=== PATIENT | female | born 1970 | race Caucasian/White ===

== ENCOUNTER 2023-02-16 17:24 | Inpatient (IN) | payer OTHER ==
[~2023-02-16] VITALS: Ht 167.6 cm; Wt 113.0 kg
[2023-02-16] MEDS ORDERED: ACET-3385 PO (17:34)
[2023-02-16] MEDS ORDERED: GABA-1181 PO (17:34)
[2023-02-16] MEDS ORDERED: METO25 PO (17:34)
[2023-02-16] MEDS ORDERED: LISI-893 PO (17:34)
[2023-02-16] MEDS ORDERED: AMLO-258 PO (17:34)
[2023-02-16] MEDS ORDERED: CYCL-448 PO (17:34)
[2023-02-16] MEDS ORDERED: HYDR25TA2 PO (17:34)
[2023-02-16] MEDS ORDERED: OMEP10 PO (17:34)
[2023-02-16] MEDS ORDERED: SODIUM CHLORIDE 0.9% 1,000 ML IV ONE ×2 (18:30→20:15)
[2023-02-16] MEDS ORDERED: ONDANSETRON HCL 4 MG/2 ML VIAL IVP ONE (18:30)
[2023-02-16] MEDS ORDERED: PANTOPRAZOLE SODIUM 40 MG/VIAL IVP ONE (18:30)
[2023-02-16] MEDS ORDERED: MORPHINE SULFATE 2 MG/ML SYRINGE IVP ONE (18:30)
[2023-02-16] MEDS ORDERED: PANTOPRAZOLE SODIUM 80 MG in SODIUM CHLORIDE 0.9% 100 ML IV SCH (19:00)
[2023-02-16 19:16] LABS: BASOPHILS % (AUTO) 0.1 % (0.0-2.0); EOSINOPHILS % (AUTO) 0 % (1.0-6.0); HEMATOCRIT 37.3 % (36-46); HEMOGLOBIN 12.4 g/dL (12.0-16.0); LYMPHOCYTES # (AUTO) 1.1 K/uL (1.0-4.8); LYMPHOCYTES % (AUTO) 6.3 % (22.0-44.0); MEAN CORPUSCULAR HEMOGLOBIN 28.3 pg (26.0-34.0); MEAN CORPUSCULAR HGB CONC 33.3 G/dL (31.0-37.0); MEAN CORPUSCULAR VOLUME 85 fL (80-100); MONOCYTES # (AUTO) 1.2 K/uL (0.1-1.0); NEUTROPHILS # (AUTO) 15.4 K/uL (1.8-7.7); PLATELET COUNT (AUTO) 278 K/uL (150-450); RED BLOOD CELL COUNT(AUTO) 4.38 MIL/uL (4.00-5.20); RED CELL DISTRIBUTION WIDTH 13.8 % (11.5-14.5)
[2023-02-16 19:17] LABS: NEUTROPHILS % (AUTO) 86.6 % (40.0-70.0)
[2023-02-16 19:26] LABS: ANION GAP 10 mmol/L (8-16); CALCIUM, TOTAL 8.6 mg/dL (8.8-10.5); CARBON DIOXIDE 28 mmol/L (22-29); CHLORIDE 88 mmol/L (98-107); CREATININE 0.74 mg/dL (0.60-1.30); GLOMERULAR FILTR. RATE CALC > 60 mL/min (>60); GLUCOSE,RANDOM 114 mg/dL (70-110); POTASSIUM 3.3 mmol/L (3.5-5.1); SODIUM SERUM 126 mmol/L (136-145)
[2023-02-16 19:31] LABS: ALANINE AMINOTRANSFERASE 29 U/L (12-78); ALBUMIN 3.6 g/dL (3.4-5.0); ALKALINE PHOSPHATASE 57 U/L (46-116); ASPARTATE AMINOTRANSFERASE 18 U/L (15-37); BILIRUBIN,TOTAL 0.8 mg/dL (0.1-1.0); INR 1.1 (0.9-1.1); LIPASE 101 U/L (73-393); PROTHROMBIN TIME 11.7 SEC (9.4-11.6); TOTAL PROTEIN, SERUM 7.3 g/dL (6.4-8.2)
[2023-02-16 19:32] LABS: PLATELET MORPHOLOGY COMMENT LARGE PLTS PRESENT
[2023-02-16] MEDS ORDERED: POTASSIUM CHLORIDE 20 MEQ ER TABLET PO PRN (20:15)
[2023-02-16] MEDS ORDERED: ONDANSETRON HCL 4 MG/2 ML VIAL IVP PRN ×2 (20:15)
[2023-02-16] MEDS ORDERED: RINGERS SOLUTION,LACTATED 1,000 ML IV SCH (20:15)
[2023-02-16] MEDS ORDERED: *CLINICAL-LEVOFLOXACIN IVPB DOSING CLINICAL ONE (20:15)
[2023-02-16] MEDS ORDERED: ACETAMINOPHEN 325 MG TABLET PO PRN ×2 (20:15)
[2023-02-16] MEDS: MetroNIDAZOLE 500 MG TABLET PO SCH (21:36)
[2023-02-16] MEDS: LEVOFLOXACIN 750 MG/D5% WATER 150 ML IV SCH (21:51)
[2023-02-16] MEDS: HEPARIN SODIUM,PORCINE 5,000 UNITS/ML VIAL SQ SCH (23:26)
[2023-02-17] MEDS ORDERED: KETOROLAC TROMETHAMINE 30 MG/ML VIAL IVP ONE (02:45)
[2023-02-17] MEDS ORDERED: SODIUM CHLORIDE 0.9% 500 ML IV SCH (03:00)
[2023-02-17] MEDS ORDERED: ACETAMINOPHEN 500 MG TABLET PO PRN (03:00)
[2023-02-17] MEDS: HEPARIN SODIUM,PORCINE 5,000 UNITS/ML VIAL SQ SCH ×2 (07:18→15:29)
[2023-02-17] MEDS ORDERED: NALOXONE HCL 1 MG/ML 2 ML SYRINGE SQ PRN (07:30)
[2023-02-17] MEDS ORDERED: MORPHINE SULFATE 4 MG/ML SYRINGE IVP PRN (07:30)
[2023-02-17 08:34] LABS: BASOPHILS % (AUTO) 0.2 % (0.0-2.0); EOSINOPHILS % (AUTO) 0 % (1.0-6.0); HEMATOCRIT 31.9 % (36-46); HEMOGLOBIN 10.6 g/dL (12.0-16.0); LYMPHOCYTES # (AUTO) 1.3 K/uL (1.0-4.8); LYMPHOCYTES % (AUTO) 9.3 % (22.0-44.0); MEAN CORPUSCULAR HEMOGLOBIN 28.4 pg (26.0-34.0); MEAN CORPUSCULAR HGB CONC 33.1 G/dL (31.0-37.0); MEAN CORPUSCULAR VOLUME 86 fL (80-100); MONOCYTES # (AUTO) 1.1 K/uL (0.1-1.0); MONOCYTES % (AUTO) 7.8 % (2.0-9.0); NEUTROPHILS # (AUTO) 11.5 K/uL (1.8-7.7); NEUTROPHILS % (AUTO) 82.7 % (40.0-70.0); PLATELET COUNT (AUTO) 201 K/uL (150-450); RED BLOOD CELL COUNT(AUTO) 3.71 MIL/uL (4.00-5.20); RED CELL DISTRIBUTION WIDTH 13.7 % (11.5-14.5)
[2023-02-17 08:44] LABS: ANION GAP 7 mmol/L (8-16); CALCIUM, TOTAL 8.2 mg/dL (8.8-10.5); CARBON DIOXIDE 26 mmol/L (22-29); CHLORIDE 93 mmol/L (98-107); CREATININE 0.83 mg/dL (0.60-1.30); GLOMERULAR FILTR. RATE CALC > 60 mL/min (>60); GLUCOSE,RANDOM 91 mg/dL (70-110); POTASSIUM 3.5 mmol/L (3.5-5.1); SODIUM SERUM 126 mmol/L (136-145)
[2023-02-17 08:50] LABS: ALANINE AMINOTRANSFERASE 22 U/L (12-78); ALBUMIN 2.7 g/dL (3.4-5.0); ALKALINE PHOSPHATASE 52 U/L (46-116); ASPARTATE AMINOTRANSFERASE 16 U/L (15-37); BILIRUBIN,TOTAL 0.5 mg/dL (0.1-1.0)
[2023-02-17] MEDS: METOPROLOL TARTRATE 25 MG TABLET PO SCH ×2 (09:00→20:24)
[2023-02-17] MEDS: LISINOPRIL 10 MG TABLET PO SCH (09:00)
[2023-02-17] MEDS: AmLODIPine BESYLATE 10 MG TABLET PO SCH (09:00)
[2023-02-17] MEDS: MetroNIDAZOLE 500 MG TABLET PO SCH ×3 (09:03→20:24)
[2023-02-17] MEDS: GABAPENTIN 300 MG CAPSULE PO SCH (09:16)
[2023-02-17] MEDS: SODIUM CHLORIDE 1 GM TABLET PO SCH ×3 (09:16→20:24)
[2023-02-17 09:45] VITALS: BP 122/76
[2023-02-17 11:43] VITALS: BP 110/62
[2023-02-17] MEDS ORDERED: SODIUM CHLORIDE 0.9% 1,000 ML IV ONE (11:45)
[2023-02-17] MEDS: POTASSIUM CHL 10 MEQ/WATER 50 ML IV PRN ×3 (14:22→17:52)
[2023-02-17 15:25] VITALS: BP 119/56
[2023-02-17 19:16] VITALS: BP 110/69
[2023-02-17] MEDS: LEVOFLOXACIN 750 MG/D5% WATER 150 ML IV SCH (23:00)
[2023-02-18 00:10] VITALS: BP 89/54
[2023-02-18 05:59] VITALS: BP 106/61
[2023-02-18 07:11] VITALS: BP 110/77
[2023-02-18] MEDS: HEPARIN SODIUM,PORCINE 5,000 UNITS/ML VIAL SQ SCH ×4 (08:00→23:59)
[2023-02-18] MEDS: SODIUM CHLORIDE 1 GM TABLET PO SCH ×3 (08:02→20:57)
[2023-02-18] MEDS: GABAPENTIN 300 MG CAPSULE PO SCH (08:02)
[2023-02-18] MEDS: METOPROLOL TARTRATE 25 MG TABLET PO SCH ×2 (08:03→20:57)
[2023-02-18] MEDS: LISINOPRIL 10 MG TABLET PO SCH (08:03)
[2023-02-18] MEDS: MetroNIDAZOLE 500 MG TABLET PO SCH ×3 (08:03→21:47)
[2023-02-18] MEDS: AmLODIPine BESYLATE 10 MG TABLET PO SCH (08:03)
[2023-02-18] MEDS: OxyCODONE HCL/ACETAMINOPHEN 5-325 MG TABLET PO PRN ×2 (09:37→20:57)
[2023-02-18 11:01] VITALS: BP 99/44
[2023-02-18 17:33] VITALS: BP 130/69
[2023-02-18] MEDS ORDERED: SODIUM CHLORIDE 0.9% 500 ML IV ONE (20:40)
[2023-02-18 20:44] VITALS: BP 124/55
[2023-02-18] MEDS: LEVOFLOXACIN 750 MG/D5% WATER 150 ML IV SCH (20:57)
[2023-02-19 05:18] VITALS: BP 114/78
[2023-02-19] MEDS: HEPARIN SODIUM,PORCINE 5,000 UNITS/ML VIAL SQ SCH (08:00)
[2023-02-19 08:37] VITALS: BP 126/96
[2023-02-19] MEDS: GABAPENTIN 300 MG CAPSULE PO SCH (09:02)
[2023-02-19] MEDS: METOPROLOL TARTRATE 25 MG TABLET PO SCH (09:02)
[2023-02-19] MEDS: MetroNIDAZOLE 500 MG TABLET PO SCH (09:02)
[2023-02-19] MEDS: SODIUM CHLORIDE 1 GM TABLET PO SCH (09:02)
[2023-02-19] MEDS: AmLODIPine BESYLATE 10 MG TABLET PO SCH (09:02)
[2023-02-19] MEDS: LISINOPRIL 10 MG TABLET PO SCH (09:02)
[2023-02-19] MEDS ORDERED: METR500 PO (12:49)
[2023-02-19] MEDS ORDERED: LEVO-72 PO (12:50)
== END 2023-02-19 14:31 | disposition home or self-care (01) | DRG 872 ==
LOC: EMS 17:26 → 5S 02-17 06:00 → 6N 02-18 15:50
PROVIDERS: ADMIT Internal Medicine; ATTEND Internal Medicine
DX: A41.9 Sepsis, unspecified organism (principal); A09 Infectious gastroenteritis and colitis, unspecified; E87.1 Hypo-osmolality and hyponatremia; Z68.41 Body mass index [BMI] 40.0-44.9, adult; E66.01 Morbid (severe) obesity due to excess calories; E86.0 Dehydration; E86.1 Hypovolemia; K21.9 Gastro-esophageal reflux disease without esophagitis; I10 Essential (primary) hypertension; E11.9 Type 2 diabetes mellitus without complications; T50.2X5A Adverse effect of carbonic-anhydrase inhibitors, benzothiadiazides and other diuretics, initial encounter; J45.909 Unspecified asthma, uncomplicated; Z91.018 Allergy to other foods; Z90.49 Acquired absence of other specified parts of digestive tract; Z98.891 History of uterine scar from previous surgery; Y92.89 Other specified places as the place of occurrence of the external cause; Z79.82 Long term (current) use of aspirin; Z87.11 Personal history of peptic ulcer disease
CPT/HCPCS: 71045; 74176; 80053; 83605; 83690; 83930; 84132; 84295; 84484; 85025; 85610; 86850; 86900; 86901; 87040; 87045; 87798; 89055; 93005; 99285; C9113; J1644; J1885; J1956; J2270; J2405; J3480; J7030; J7040; J7050; J7120; 36415-L1; 36415-TC